=== PATIENT | female | born 1940 | race Caucasian/White ===

== ENCOUNTER → 2016-12-12 | Outpatient (CLI) | payer MEDICARE, BC ==
[2016-12-12 11:53] LABS: ABSOLUTE BASOPHILS # (AUTO) 0.1 10^3/uL (0.0-0.2); ABSOLUTE EOSINOPHILS # (AUTO) 0.3 10^3/uL (0.0-0.6); ABSOLUTE LYMPHOCYTES (AUTO) 1.9 10^3/uL (0.5-4.7); ABSOLUTE MONOCYTES (AUTO) 0.8 10^3/uL (0.1-1.4); ABSOLUTE NEUT (AUTO) 5.7 10^3/uL (1.7-8.2); BASOPHILS % (AUTO) 1.1 % (0-2); EOSINOPHILS % (AUTO) 3.3 % (0-6); HEMATOCRIT 34.1 % (36.0-47.0); HEMOGLOBIN 11.2 g/dL (12.0-15.5); HGB HCT DIFFERENCE -0.5; LYMPHOCYTES % (AUTO) 22.1 % (13-45); MEAN CORPUSCULAR HEMOGLOBIN 29.4 pg (27.0-33.4); MEAN CORPUSCULAR HGB CONC 32.7 g/dL (32.0-36.0); MEAN CORPUSCULAR VOLUME 90 fl (80-97); MONOCYTES % (AUTO) 8.7 % (3-13); RED BLOOD COUNT 3.79 10^6/uL (3.72-5.28); RED CELL DISTRIBUTION WIDTH 13.7 % (11.5-14.0); SEGMENTED NEUTROPHILS % (AUTO) 64.8 % (42-78); WHITE BLOOD COUNT 8.8 10^3/uL (4.0-10.5)
[2016-12-12 12:10] LABS: APPEARANCE,URINE SLIGHTLY-CLOUDY; BILIRUBIN,URINE NEGATIVE (NEGATIVE); GLUCOSE, URINE NEGATIVE (NEGATIVE); KETONES,URINE NEGATIVE (NEGATIVE); LEUKOCYTE ESTERASE,URINE MODERATE (NEGATIVE); NITRITE,URINE NEGATIVE (NEGATIVE); PROTEIN,URINE NEGATIVE (NEGATIVE); URINE SPECIFIC GRAVITY 1.009; UROBILINOGEN,URINE NEGATIVE mg/dL (<2.0)
[2016-12-12 12:18] LABS: ALANINE AMINOTRANSFERASE 23 U/L (9-52); ALBUMIN 4.5 g/dL (3.5-5.0); ALKALINE PHOSPHATASE 33 U/L (38-126); ANION GAP 15 (5-19); ASPARTATE AMINO TRANSFERASE 16 U/L (14-36); BILIRUBIN,DIRECT 0.3 mg/dL (0.0-0.4); BILIRUBIN,TOTAL 0.4 mg/dL (0.2-1.3); BLOOD UREA NITROGEN 56 mg/dL (7-20); CALCIUM 9.7 mg/dL (8.4-10.2); CARBON DIOXIDE 25 mmol/L (22-30); CHLORIDE 100 mmol/L (98-107); CREATININE RESULT 2.56 mg/dL (0.52-1.25); GLUCOSE 96 mg/dL (75-110); MAGNESIUM 2.3 mg/dL (1.6-2.3); PHOSPHORUS 5.1 mg/dL (2.5-4.5); POTASSIUM 4.9 mmol/L (3.6-5.0); SODIUM 139.5 mmol/L (137-145); TOTAL PROTEIN 7.2 g/dL (6.3-8.2)
== END ==
LOC: OD 10:44
PROVIDERS: ATTEND Internal Medicine Nephrology
DX: I12.9 Hypertensive chronic kidney disease with stage 1 through stage 4 chronic kidney disease, or unspecified chronic kidney disease (principal); N18.4 Chronic kidney disease, stage 4 (severe)
CPT/HCPCS: 36415; 80053; 81001; 83735; 84100; 85025

== ENCOUNTER → 2017-02-23 | Outpatient (CLI) | payer MEDICARE, BC ==
[2017-02-23 11:51] LABS: HEMATOCRIT 33.9 % (36.0-47.0); HEMOGLOBIN 11.2 g/dL (12.0-15.5); HGB HCT DIFFERENCE -0.3; MEAN CORPUSCULAR HEMOGLOBIN 29.8 pg (27.0-33.4); MEAN CORPUSCULAR VOLUME 90 fl (80-97); RED BLOOD COUNT 3.76 10^6/uL (3.72-5.28); RED CELL DISTRIBUTION WIDTH 13.8 % (11.5-14.0); WHITE BLOOD COUNT 8.2 10^3/uL (4.0-10.5)
[2017-02-23 12:25] LABS: ALANINE AMINOTRANSFERASE 18 U/L (9-52); ALBUMIN 4.6 g/dL (3.5-5.0); ALKALINE PHOSPHATASE 36 U/L (38-126); ANION GAP 14 (5-19); ASPARTATE AMINO TRANSFERASE 16 U/L (14-36); BILIRUBIN,DIRECT 0.3 mg/dL (0.0-0.4); BILIRUBIN,TOTAL 0.5 mg/dL (0.2-1.3); BLOOD UREA NITROGEN 42 mg/dL (7-20); CALCIUM 9.5 mg/dL (8.4-10.2); CARBON DIOXIDE 25 mmol/L (22-30); CHLORIDE 103 mmol/L (98-107); CREATININE RESULT 2.53 mg/dL (0.52-1.25); GLUCOSE 79 mg/dL (75-110); POTASSIUM 4.6 mmol/L (3.6-5.0); SODIUM 141.5 mmol/L (137-145); TOTAL PROTEIN 7.5 g/dL (6.3-8.2)
[2017-02-23 15:04] LABS: APPEARANCE,URINE SLIGHTLY-CLOUDY; BILIRUBIN,URINE NEGATIVE (NEGATIVE); GLUCOSE, URINE NEGATIVE (NEGATIVE); KETONES,URINE NEGATIVE (NEGATIVE); LEUKOCYTE ESTERASE,URINE TRACE (NEGATIVE); NITRITE,URINE NEGATIVE (NEGATIVE); PROTEIN,URINE NEGATIVE (NEGATIVE); URINE SPECIFIC GRAVITY 1.011; UROBILINOGEN,URINE NEGATIVE mg/dL (<2.0)
[2017-02-25 11:40] LABS: CREATININE URINE 84.8 mg/dL (Not Estab.); MICROALBUMIN URINE 22.2 ug/mL (Not Estab.)
== END ==
LOC: OD 10:52
PROVIDERS: ATTEND Physician Assistant Medical
DX: I12.9 Hypertensive chronic kidney disease with stage 1 through stage 4 chronic kidney disease, or unspecified chronic kidney disease (principal); N18.4 Chronic kidney disease, stage 4 (severe); R60.9 Edema, unspecified
CPT/HCPCS: 36415; 80053; 81001; 82043; 82570; 85027

== ENCOUNTER → 2017-03-27 | Outpatient (CLI) | payer MEDICARE, BC ==
[2017-03-27 12:20] LABS: HEMATOCRIT 33.4 % (36.0-47.0); HGB HCT DIFFERENCE -0.4; MEAN CORPUSCULAR HEMOGLOBIN 30.1 pg (27.0-33.4); MEAN CORPUSCULAR VOLUME 91 fl (80-97); RED BLOOD COUNT 3.66 10^6/uL (3.72-5.28); RED CELL DISTRIBUTION WIDTH 13.1 % (11.5-14.0); WHITE BLOOD COUNT 7.7 10^3/uL (4.0-10.5)
[2017-03-27 12:21] LABS: APPEARANCE,URINE CLEAR; BILIRUBIN,URINE NEGATIVE (NEGATIVE); GLUCOSE, URINE NEGATIVE (NEGATIVE); KETONES,URINE NEGATIVE (NEGATIVE); LEUKOCYTE ESTERASE,URINE NEGATIVE (NEGATIVE); NITRITE,URINE NEGATIVE (NEGATIVE); PROTEIN,URINE NEGATIVE (NEGATIVE); URINE SPECIFIC GRAVITY 1.009; UROBILINOGEN,URINE NEGATIVE mg/dL (<2.0)
[2017-03-27 12:59] LABS: ANION GAP 13 (5-19); BLOOD UREA NITROGEN 49 mg/dL (7-20); CALCIUM 9.9 mg/dL (8.4-10.2); CARBON DIOXIDE 24 mmol/L (22-30); CHLORIDE 103 mmol/L (98-107); CREATININE RESULT 2.25 mg/dL (0.52-1.25); GLUCOSE 81 mg/dL (75-110); SODIUM 139.5 mmol/L (137-145)
== END ==
LOC: OD 11:29
PROVIDERS: ATTEND Physician Assistant Medical
DX: I12.9 Hypertensive chronic kidney disease with stage 1 through stage 4 chronic kidney disease, or unspecified chronic kidney disease (principal); N18.4 Chronic kidney disease, stage 4 (severe); R60.9 Edema, unspecified
CPT/HCPCS: 36415; 80048; 81001; 85027

== ENCOUNTER → 2017-10-01 | Outpatient (CLI) | payer MEDICARE, BC ==
[2017-10-01 13:03] LABS: HEMATOCRIT 35.4 % (36.0-47.0); HEMOGLOBIN 11.9 g/dL (12.0-15.5); MEAN CORPUSCULAR HEMOGLOBIN 29.8 pg (27.0-33.4); MEAN CORPUSCULAR HGB CONC 33.7 g/dL (32.0-36.0); MEAN CORPUSCULAR VOLUME 88 fl (80-97); PLATELET COUNT 337 10^3/uL (150-450); RED CELL DISTRIBUTION WIDTH 13.5 % (11.5-14.0); WHITE BLOOD COUNT 8.7 10^3/uL (4.0-10.5)
[2017-10-01 13:05] LABS: APPEARANCE,URINE SLIGHTLY-CLOUDY; BILIRUBIN,URINE NEGATIVE (NEGATIVE); COLOR,URINE YELLOW; GLUCOSE, URINE NEGATIVE (NEGATIVE); KETONES,URINE NEGATIVE (NEGATIVE); LEUKOCYTE ESTERASE,URINE SMALL (NEGATIVE); NITRITE,URINE NEGATIVE (NEGATIVE); PROTEIN,URINE NEGATIVE (NEGATIVE); URINE SPECIFIC GRAVITY 1.012; UROBILINOGEN,URINE NEGATIVE mg/dL (<2.0)
[2017-10-01 13:32] LABS: ANION GAP 14 (5-19); BLOOD UREA NITROGEN 40 mg/dL (7-20); CALCIUM 9.4 mg/dL (8.4-10.2); CARBON DIOXIDE 24 mmol/L (22-30); CHLORIDE 103 mmol/L (98-107); GLUCOSE 78 mg/dL (75-110); POTASSIUM 5.1 mmol/L (3.6-5.0); SODIUM 140.6 mmol/L (137-145)
== END ==
LOC: OD 11:51
PROVIDERS: ATTEND Physician Assistant Medical
DX: I12.9 Hypertensive chronic kidney disease with stage 1 through stage 4 chronic kidney disease, or unspecified chronic kidney disease (principal); N18.4 Chronic kidney disease, stage 4 (severe); D64.9 Anemia, unspecified
CPT/HCPCS: 36415; 80048; 81001; 85027

== ENCOUNTER → 2018-02-08 | Outpatient (CLI) | payer MEDICARE, BC ==
[2018-02-08 12:52] LABS: HEMATOCRIT 35.7 % (36.0-47.0); HEMOGLOBIN 11.7 g/dL (12.0-15.5); MEAN CORPUSCULAR HGB CONC 32.7 g/dL (32.0-36.0); MEAN CORPUSCULAR VOLUME 89 fl (80-97); PLATELET COUNT 327 10^3/uL (150-450); RED BLOOD COUNT 4.03 10^6/uL (3.72-5.28); RED CELL DISTRIBUTION WIDTH 13.6 % (11.5-14.0); WHITE BLOOD COUNT 7.9 10^3/uL (4.0-10.5)
[2018-02-08 13:03] LABS: APPEARANCE,URINE CLEAR; BILIRUBIN,URINE NEGATIVE (NEGATIVE); COLOR,URINE STRAW; GLUCOSE, URINE NEGATIVE (NEGATIVE); KETONES,URINE NEGATIVE (NEGATIVE); LEUKOCYTE ESTERASE,URINE TRACE (NEGATIVE); NITRITE,URINE NEGATIVE (NEGATIVE); PROTEIN,URINE NEGATIVE (NEGATIVE); UROBILINOGEN,URINE NEGATIVE mg/dL (<2.0)
[2018-02-08 13:23] LABS: ANION GAP 14 (5-19); BLOOD UREA NITROGEN 33 mg/dL (7-20); CALCIUM 9.6 mg/dL (8.4-10.2); CARBON DIOXIDE 25 mmol/L (22-30); CHLORIDE 108 mmol/L (98-107); GLUCOSE 84 mg/dL (75-110); PHOSPHORUS 4.5 mg/dL (2.5-4.5); POTASSIUM 5.2 mmol/L (3.6-5.0); SODIUM 146.8 mmol/L (137-145)
== END ==
LOC: OD 12:09
PROVIDERS: ATTEND Physician Assistant Medical
DX: I12.9 Hypertensive chronic kidney disease with stage 1 through stage 4 chronic kidney disease, or unspecified chronic kidney disease (principal); N18.4 Chronic kidney disease, stage 4 (severe); R60.9 Edema, unspecified; E87.5 Hyperkalemia; D64.9 Anemia, unspecified
CPT/HCPCS: 36415; 80048; 81001; 83970; 84100; 85027

== ENCOUNTER → 2018-03-26 | Outpatient (CLI) | payer MEDICARE, BC ==
[2018-03-26 11:55] LABS: ANION GAP 17 (5-19); BLOOD UREA NITROGEN 53 mg/dL (7-20); CALCIUM 9.8 mg/dL (8.4-10.2); CARBON DIOXIDE 20 mmol/L (22-30); CHLORIDE 107 mmol/L (98-107); GLUCOSE 75 mg/dL (75-110); POTASSIUM 5.1 mmol/L (3.6-5.0); SODIUM 144.3 mmol/L (137-145)
== END ==
LOC: OD 09:59
PROVIDERS: ATTEND Physician Assistant Medical
DX: N18.4 Chronic kidney disease, stage 4 (severe) (principal); E87.5 Hyperkalemia; M19.91 Primary osteoarthritis, unspecified site
CPT/HCPCS: 36415; 80048

== ENCOUNTER → 2018-05-27 | Outpatient (CLI) | payer MEDICARE, BC ==
[2018-05-27 13:34] LABS: ANION GAP 13 (5-19); BLOOD UREA NITROGEN 45 mg/dL (7-20); CALCIUM 9.9 mg/dL (8.4-10.2); CARBON DIOXIDE 24 mmol/L (22-30); CHLORIDE 104 mmol/L (98-107); GLUCOSE 97 mg/dL (75-110); PHOSPHORUS 4.2 mg/dL (2.5-4.5); SODIUM 140.5 mmol/L (137-145)
[2018-05-27 13:38] LABS: POTASSIUM 5.3 mmol/L (3.6-5.0)
[2018-05-27 13:40] LABS: APPEARANCE,URINE TURBID; BILIRUBIN,URINE NEGATIVE (NEGATIVE); COLOR,URINE YELLOW; GLUCOSE, URINE NEGATIVE (NEGATIVE); KETONES,URINE NEGATIVE (NEGATIVE); LEUKOCYTE ESTERASE,URINE LARGE (NEGATIVE); NITRITE,URINE POSITIVE (NEGATIVE); PROTEIN,URINE 100 mg/dL (NEGATIVE); URINE SPECIFIC GRAVITY 1.013; UROBILINOGEN,URINE NEGATIVE mg/dL (<2.0)
[2018-05-31 13:32] LABS: HEMATOCRIT 36.9 % (36.0-47.0); HEMOGLOBIN 12.3 g/dL (12.0-15.5); MEAN CORPUSCULAR HEMOGLOBIN 29.7 pg (27.0-33.4); MEAN CORPUSCULAR HGB CONC 33.5 g/dL (32.0-36.0); MEAN CORPUSCULAR VOLUME 89 fl (80-97); PLATELET COUNT 390 10^3/uL (150-450); RED BLOOD COUNT 4.16 10^6/uL (3.72-5.28); RED CELL DISTRIBUTION WIDTH 13.9 % (11.5-14.0); WHITE BLOOD COUNT 10.9 10^3/uL (4.0-10.5)
== END ==
LOC: OD 12:34
PROVIDERS: ATTEND Physician Assistant Medical
DX: I12.9 Hypertensive chronic kidney disease with stage 1 through stage 4 chronic kidney disease, or unspecified chronic kidney disease (principal); N18.4 Chronic kidney disease, stage 4 (severe); R30.0 Dysuria
CPT/HCPCS: 36415; 80048; 81001; 83970; 84100; 85025; 85027; 87086; 87088; 87186

== ENCOUNTER → 2018-10-01 | Outpatient (CLI) | payer MEDICARE, BC ==
[2018-10-01 11:41] LABS: HEMATOCRIT 37.1 % (36.0-47.0); HEMOGLOBIN 12.4 g/dL (12.0-15.5); MEAN CORPUSCULAR HEMOGLOBIN 29.5 pg (27.0-33.4); MEAN CORPUSCULAR HGB CONC 33.4 g/dL (32.0-36.0); MEAN CORPUSCULAR VOLUME 88 fl (80-97); PLATELET COUNT 304 10^3/uL (150-450); RED CELL DISTRIBUTION WIDTH 14.2 % (11.5-14.0); WHITE BLOOD COUNT 8.3 10^3/uL (4.0-10.5)
[2018-10-01 11:43] LABS: APPEARANCE,URINE TURBID; BILIRUBIN,URINE NEGATIVE (NEGATIVE); COLOR,URINE YELLOW; GLUCOSE, URINE NEGATIVE (NEGATIVE); KETONES,URINE NEGATIVE (NEGATIVE); LEUKOCYTE ESTERASE,URINE LARGE (NEGATIVE); NITRITE,URINE POSITIVE (NEGATIVE); PROTEIN,URINE 30 mg/dL (NEGATIVE); URINE SPECIFIC GRAVITY 1.013; UROBILINOGEN,URINE NEGATIVE mg/dL (<2.0)
[2018-10-01 12:08] LABS: ANION GAP 12 (5-19); BLOOD UREA NITROGEN 45 mg/dL (7-20); CALCIUM 9.7 mg/dL (8.4-10.2); CARBON DIOXIDE 23 mmol/L (22-30); CHLORIDE 107 mmol/L (98-107); GLUCOSE 79 mg/dL (75-110); POTASSIUM 4.9 mmol/L (3.6-5.0); SODIUM 142.3 mmol/L (137-145)
== END ==
LOC: OD 10:20
PROVIDERS: ATTEND Physician Assistant Medical
DX: I12.9 Hypertensive chronic kidney disease with stage 1 through stage 4 chronic kidney disease, or unspecified chronic kidney disease (principal); N18.4 Chronic kidney disease, stage 4 (severe); R60.9 Edema, unspecified; D64.9 Anemia, unspecified
CPT/HCPCS: 36415; 80048; 81001; 83735; 85027

== ENCOUNTER → 2019-02-11 | Outpatient (CLI) | payer MEDICARE, BC ==
[2019-02-11 11:54] LABS: HEMOGLOBIN 12.2 g/dL (12.0-15.5); MEAN CORPUSCULAR HEMOGLOBIN 29.1 pg (27.0-33.4); MEAN CORPUSCULAR HGB CONC 33.1 g/dL (32.0-36.0); MEAN CORPUSCULAR VOLUME 88 fl (80-97); PLATELET COUNT 319 10^3/uL (150-450); RED BLOOD COUNT 4.21 10^6/uL (3.72-5.28); RED CELL DISTRIBUTION WIDTH 14.1 % (11.5-14.0); WHITE BLOOD COUNT 8.2 10^3/uL (4.0-10.5)
[2019-02-11 11:58] LABS: APPEARANCE,URINE CLOUDY; BILIRUBIN,URINE NEGATIVE (NEGATIVE); COLOR,URINE YELLOW; GLUCOSE, URINE NEGATIVE (NEGATIVE); KETONES,URINE NEGATIVE (NEGATIVE); LEUKOCYTE ESTERASE,URINE LARGE (NEGATIVE); NITRITE,URINE NEGATIVE (NEGATIVE); PROTEIN,URINE NEGATIVE (NEGATIVE); URINE SPECIFIC GRAVITY 1.013; UROBILINOGEN,URINE NEGATIVE mg/dL (<2.0)
[2019-02-11 12:21] LABS: ANION GAP 10 (5-19); BLOOD UREA NITROGEN 35 mg/dL (7-20); CALCIUM 9.5 mg/dL (8.4-10.2); CARBON DIOXIDE 26 mmol/L (22-30); CHLORIDE 107 mmol/L (98-107); GLUCOSE 100 mg/dL (75-110); POTASSIUM 5.1 mmol/L (3.6-5.0); SODIUM 142.5 mmol/L (137-145)
== END ==
LOC: OD 11:16
PROVIDERS: ATTEND Physician Assistant Medical
DX: I12.9 Hypertensive chronic kidney disease with stage 1 through stage 4 chronic kidney disease, or unspecified chronic kidney disease (principal); N18.9 Chronic kidney disease, unspecified; R60.9 Edema, unspecified; E87.5 Hyperkalemia; D64.9 Anemia, unspecified
CPT/HCPCS: 36415; 80048; 81001; 83970; 85027

== ENCOUNTER 2019-02-16 17:00 | Inpatient (IN) | payer MEDICARE, BC ==
[2019-02-16] MEDS ORDERED: NORMAL SALINE 250 ML IV ONE (17:20)
[2019-02-16] MEDS ORDERED: ONDANSETRON HCL INJ/PF 4 MG/2 ML SDV IV ONE ×2 (17:21→20:18)
--- NOTE | 2019-02-16 17:25 | ER Document Report ---
ED Medical Screen (RME) - General Chief Complaint: Nausea/Vomiting Stated Complaint: DEHYDRATION Time Seen by Provider: 02/16/19 17:14 Primary Care Provider: LASHAE WATT PA-C [Primary Care Provider] - Follow up as needed Mode of Arrival: Wheelchair Information source: Patient Notes: Patient is an 78-year-old female with stage IV chronic kidney disease sent to the emergency department with complaints of body cramping and vomiting that began on Thursday. Patient reports she is dehydrated and cannot keep any fluids down. At the time of arrival she is normotensive but tachycardic. She is alert, oriented and answering all questions appropriately with no acute distress noted. She denies any diarrhea or fever. Exam: Abdomen soft, nontender with no guarding and no rebound. I have greeted and performed a rapid initial assessment of this patient. A comprehensive ED assessment and evaluation of the patient, analysis of test results and completion of the medical decision making process will be conducted by additional ED providers. I have specifically instructed the patient or family members with the patient to immediately return to any nursing staff should anything change in the patient's condition or with their chief complaint. This medical record was dictated with voice recognizing software. There may be grammatical, syntax errors that are unintended. TRAVEL OUTSIDE OF THE [place] IN LAST 30 DAYS: No - Related Data Allergies/Adverse Reactions: latex Allergy (Verified 02/16/19 17:07) Physical Exam - Vital signs Vitals: Temp Pulse Resp BP Pulse Ox 98.0 F 125 H 22 H 147/82 H 94 02/16/19 17:14 02/16/19 17:14 02/16/19 17:14 02/16/19 17:14 02/16/19 17:14 Course - Vital Signs Vital signs: Temp Pulse Resp BP Pulse Ox 98.0 F 125 H 22 H 147/82 H 94 02/16/19 17:14 02/16/19 17:14 02/16/19 17:14 02/16/19 17:14 02/16/19 17:14 Doctor's Discharge - Discharge Referrals: LASHAE WATT PA-C [Primary Care Provider] - Follow up as needed
[2019-02-16 17:49] LABS: ABSOLUTE BASOPHILS # (AUTO) 0.1 10^3/uL (0.0-0.2); ABSOLUTE EOSINOPHILS # (AUTO) 0.1 10^3/uL (0.0-0.6); ABSOLUTE LYMPHOCYTES (AUTO) 1.8 10^3/uL (0.5-4.7); ABSOLUTE MONOCYTES (AUTO) 1.4 10^3/uL (0.1-1.4); ABSOLUTE NEUT (AUTO) 7.3 10^3/uL (1.7-8.2); BASOPHILS % (AUTO) 0.6 % (0-2); EOSINOPHILS % (AUTO) 0.5 % (0-6); HEMATOCRIT 43.1 % (36.0-47.0); HEMOGLOBIN 14.6 g/dL (12.0-15.5); LYMPHOCYTES % (AUTO) 17.3 % (13-45); MEAN CORPUSCULAR HEMOGLOBIN 29.8 pg (27.0-33.4); MEAN CORPUSCULAR VOLUME 88 fl (80-97); MONOCYTES % (AUTO) 13.5 % (3-13); PLATELET COUNT 385 10^3/uL (150-450); RED BLOOD COUNT 4.92 10^6/uL (3.72-5.28); RED CELL DISTRIBUTION WIDTH 13.5 % (11.5-14.0); SEGMENTED NEUTROPHILS % (AUTO) 68.1 % (42-78); TOTAL CELLS COUNTED % (AUTO) 100 %; WHITE BLOOD COUNT 10.7 10^3/uL (4.0-10.5)
[2019-02-16 18:06] LABS: ALANINE AMINOTRANSFERASE 12 U/L (9-52); ALBUMIN 5.3 g/dL (3.5-5.0); ALKALINE PHOSPHATASE 62 U/L (38-126); ANION GAP 18 (5-19); ASPARTATE AMINO TRANSFERASE 28 U/L (14-36); BILIRUBIN,DIRECT 0.4 mg/dL (0.0-0.4); BILIRUBIN,TOTAL 0.9 mg/dL (0.2-1.3); BLOOD UREA NITROGEN 61 mg/dL (7-20); CALCIUM 10.7 mg/dL (8.4-10.2); CARBON DIOXIDE 31 mmol/L (22-30); CHLORIDE 86 mmol/L (98-107); GLUCOSE 164 mg/dL (75-110); POTASSIUM 4.1 mmol/L (3.6-5.0); SODIUM 134.6 mmol/L (137-145); TOTAL PROTEIN 9.7 g/dL (6.3-8.2)
[2019-02-16] MEDS ORDERED: NORMAL SALINE 1000 ML 1,000 ML IV ONE ×2 (19:08→19:57)
--- NOTE | 2019-02-16 19:57 | ER Document Report ---
Entered by ANTONIO ALMARAZ SCRIBE 02/16/19 1907 Acting as scribe for:ZANE PRADO MD ED General - General Chief Complaint: Nausea/Vomiting Stated Complaint: DEHYDRATION Time Seen by Provider: 02/16/19 17:14 Mode of Arrival: Wheelchair Information source: Patient, [facility] Records Notes: Patient is a 78-year-old female presenting to the emergency department complaini ng of dehydration with associated nausea and vomiting. Patient states that she knows she is dehydrated she has not had much fluids. Patient states that she has been vomiting and had nausea today, she is not nauseous at the moment after she was given Zofran upon arrival. Patient states that she is also been having bad cramping. When asked patient denies ever being on Advair. Patient states that she occasionally takes albuterol. TRAVEL OUTSIDE OF THE [place] IN LAST 30 DAYS: No - Related Data Allergies/Adverse Reactions: latex Allergy (Verified 02/16/19 17:07) Past Medical History - General Information source: Patient - Social History Smoking Status: Former Smoker Cigarette use (# per day): No Chew tobacco use (# tins/day): No Smoking Education Provided: No Frequency of alcohol use: None Drug Abuse: None Lives with: Family Family History: Reviewed & Not Pertinent Patient has suicidal ideation: No Patient has homicidal ideation: No - Past Medical History Cardiac Medical History: Reports: Hx Hypertension Pulmonary Medical History: Reports: Other - Reactive airway disease GI Medical History: Reports: Hx Gastroesophageal Reflux Disease, Other - Stage IV kidney disease Past Surgical History: Reports: Hx Hysterectomy Review of Systems - Review of Systems Constitutional: No symptoms reported EENT: No symptoms reported Cardiovascular: No symptoms reported Respiratory: No symptoms reported Gastrointestinal: See HPI, Nausea, Vomiting Genitourinary: No symptoms reported Female Genitourinary: No symptoms reported Musculoskeletal: No symptoms reported Skin: No symptoms reported Hematologic/Lymphatic: No symptoms reported Neurological/Psychological: No symptoms reported -: Yes All other systems reviewed and negative Physical Exam - Vital signs Vitals: Temp Pulse Resp BP Pulse Ox 98.0 F 125 H 22 H 147/82 H 94 02/16/19 17:14 02/16/19 17:14 02/16/19 17:14 02/16/19 17:14 02/16/19 17:14 - Notes Notes: Physical Exam: General: Alert, mild generalized tremor, dry mouth. HEENT: Normocephalic. Atraumatic. PERRL. Extraocular movements intact. Oropharynx clear. Neck: Supple. Non-tender. Respiratory: No respiratory distress. Clear and equal breath sounds bilaterally. Cardiovascular: Tachycardic. Regular rhythm. Abdominal: Normal Inspection. Non-tender. No distension. Normal Bowel Sounds. Back: Non-tender. No deformity or step off. Extremities: Moves all four extremities. Upper extremities: Normal inspection. Normal ROM. Lower extremities: Normal inspection. No edema. Normal ROM. Neurological: Normal cognition. AAOx4. Normal speech. Psychological: Normal affect. Normal Mood. Skin: Warm. Dry. Normal color. Course - Re-evaluation Re-evalutation: 02/16/19 21:21 Acute abdominal series does not show any dilated loops of bowel or air-fluid levels. She did vomit just before the x-ray, got additional Zofran. She has now again just vomited. Her blood pressure remains elevated. We will give her a dose of Lopressor and Reglan IV. We will continue IV hydration. - Vital Signs Vital signs: Temp Pulse Resp BP Pulse Ox 97.8 F 104 H 18 160/73 H 92 02/17/19 01:00 02/17/19 01:00 02/17/19 01:00 02/17/19 01:00 02/17/19 01:00 - Laboratory Result Diagrams: 02/16/19 17:30 02/16/19 17:30 Laboratory results interpreted by me: 02/16/19 02/16/19 02/16/19 17:30 17:30 21:04 WBC 10.7 H Monocytes % 13.5 H Sodium 134.6 L Chloride 86 L Carbon Dioxide 31 H BUN 61 H Creatinine 3.61 H Est GFR ( Amer) 15 L Est GFR (Non-Af Amer) 12 L Glucose 164 H Calcium 10.7 H Total Protein 9.7 H Albumin 5.3 H Urine Protein >=500 H Urine Ketones TRACE H Urine Blood MODERATE H Ur Leukocyte Esterase MODERATE H - Diagnostic Test Radiology reviewed: Image reviewed, Reports reviewed - Acute abdominal series does not show any acute pathology. - EKG Interpretation by Me EKG shows normal: Sinus rhythm, [place], Intervals, QRS Complexes. abnormal: ST-T Waves - Diffuse borderline ST depression Rate: Tachycardia - 127 Rhythm: Other - Runs of premature complexes, unable to determine if these are aberrant PACs or PVCs Voltage: Decreased voltage When compared to previous EKG there are: Previous EKG unavailable Critical Care Note - Critical Care Note Total time excluding time spent on procedures (mins): 40 Discharge - Discharge Clinical Impression: Dehydration, Tachycardia Nausea and vomiting Qualifiers: Vomiting type: unspecified Vomiting Intractability: non-intractable Qualified Code(s): R11.2 - Nausea with vomiting, unspecified Acute on chronic renal failure Qualifiers: Acute renal failure type: unspecified Chronic kidney disease stage: stage 4 (severe) Qualified Code(s): N17.9 - Acute kidney failure, unspecified High blood pressure Qualifiers: Hypertension type: essential hypertension Qualified Code(s): I10 - Essential (primary) hypertension Condition: Good Disposition: ADMITTED INPATIENT Admitting Provider: Ban (Hospitalist) Unit Admitted: Telemetry Scribe Attestation: 02/16/19 23:12 I personally performed the services described in the documentation, reviewed and edited the documentation which was dictated to the scribe in my presence, and it accurately records my words and actions. I personally performed the services described in the documentation, reviewed and edited the documentation which was dictated to the scribe in my presence, and it accurately records my words and actions.
[2019-02-16] MEDS ORDERED: AMLODIPINE BESYLATE 10 MG TABLET PO ONE (19:58)
[2019-02-16] MEDS ORDERED: ONDANSETRON HCL INJ/PF 4 MG/2 ML SDV ONE (20:19)
[2019-02-16] MEDS ORDERED: PROMETHAZINE HCL INJ 25 MG/1 ML VIAL ONE (20:21)
--- NOTE | 2019-02-16 20:53 | RADIOLOGY REPORT (SQ) ---
EXAM DESCRIPTION: XR ABDOMEN SUPINE AND ERECT WITH CHEST (ABD ACUTE SERIES) COMPLETED DATE/TME: 02/16/2019 19:58 CLINICAL HISTORY: 78 years Female ,Nausea and vomiting COMPARISON: None. TECHNIQUE: Frontal view chest x-ray and two views of the abdomen. FINDINGS: The cardiomediastinal silhouette appears unremarkable. No consolidating infiltrates or pleural effusions. Atelectasis in the lung bases. Patient is rotated to the right. No free air is identified beneath the hemidiaphragms. No dilated loops of bowel to suggest obstruction. Degenerative changes in the spine. IMPRESSION: No acute plain film abnormality is identified.
[2019-02-16] MEDS ORDERED: METOPROLOL TARTRATE PF/INJ 5 MG/5 ML SDV IV ONE (21:19)
[2019-02-16] MEDS ORDERED: METOCLOPRAMIDE HCL INJ/PF 10 MG/2 ML SDV IV ONE (21:20)
[2019-02-16 21:28] LABS: APPEARANCE,URINE CLOUDY; BILIRUBIN,URINE NEGATIVE (NEGATIVE); COLOR,URINE AMBER; GLUCOSE, URINE NEGATIVE (NEGATIVE); KETONES,URINE TRACE mg/dL (NEGATIVE); LEUKOCYTE ESTERASE,URINE MODERATE (NEGATIVE); NITRITE,URINE NEGATIVE (NEGATIVE); PROTEIN,URINE >=500 mg/dL (NEGATIVE); URINE SPECIFIC GRAVITY 1.016; UROBILINOGEN,URINE NEGATIVE mg/dL (<2.0)
[2019-02-16 21:38] LABS: CREATINE KINASE 98 U/L (30-135)
[2019-02-16] MEDS ORDERED: CEFTRIAXONE 1 GM/D5W RTU 1 GM/50 ML RTUPB IV ONE (21:49)
[2019-02-16 21:51] LABS: CREATINE KINASE MB 1.47 ng/mL (<4.55)
[2019-02-16 21:57] LABS: TROPONIN I 0.084 ng/mL
[2019-02-16 22:33] LABS: CREATINE KINASE MB 1.42 ng/mL (<4.55); TROPONIN I 0.067 ng/mL
--- NOTE | 2019-02-17 00:01 | PDOC H&P ---
History of Present Illness Admission Date/PCP: 02/16/19 23:20 LASHAE WATT PA-C Patient complains of: Intractable nausea and vomiting History of Present Illness: ADRIÁN DENNY is a 78 year old female who presented to the emergency room with a four-day history of nausea and vomiting. Patient admits persistent severe nausea and vomiting for the last 4 days that has been essentially intractable. She further admits he accompanying symptoms of abdominal cramping and aching of the abdominal musculature after episodes of vomiting as well as general anorexia. She describes the emesis as bilious definitely not containing any blood. She denies other associated or accompanying signs or symptoms. She denies prior similar episodes of the same intensity. She has not identified any aggravating or ameliorating factors for her nausea and vomiting. In the emergency room the patient was found to have acute on chronic renal injury and significant pyuria with a urine culture pending. She was subsequently admitted to the hospital for further evaluation and treatment. Past Medical History Cardiac Medical History: Reports: Hypertension Denies: Coronary Artery Disease, Peripheral Vascular Disease Pulmonary Medical History: Reports: Other - Reactive airway disease Denies: Asthma, Chronic Obstructive Pulmonary Disease (COPD) EENT Medical History: Denies: Cataracts, Ears - Hearing aids Neurological Medical History: Denies: Hemorrhagic CVA, Ischemic CVA, Seizures Endocrine Medical History: Denies: Diabetes Mellitus Type 1, Diabetes Mellitus Type 2, Hyperthyroidism, Hypothyroidism Renal/ Medical History: Reports: Chronic Kidney Disease Denies: Nephrolithiasis Malignancy Medical History: Reports: Breast Cancer GI Medical History: Reports: Gastroesophageal Reflux Disease, Other - Stage IV kidney disease Denies: Cirrhosis, Hepatitis Musculoskeltal Medical History: Denies: Arthritis, Gout Skin Medical History: Denies: Eczema, Psoriasis Psychiatric Medical History: Reports: Tobacco Dependency Denies: Alcohol Dependency, Substance Abuse Traumatic Medical History: Reports: None Hematology: Denies: Anemia, Bleeding Tendencies Infectious Medical History: Reports: None Past Surgical History Past Surgical History: Reports: Hysterectomy, Tonsillectomy, Other - Bilateral breast lumpectomies Social History Information Source: Patient Lives with: Spouse/Significant other Smoking Status: Former Smoker Frequency of Alcohol Use: Social Hx Recreational Drug Use: No Drugs: None Hx Prescription Drug Abuse: No - Advance Directive Resuscitation Status: Do Not Resuscitate Surrogate healthcare decision maker:: Diane Kendrick Family History Family History: CAD, Malignancy Parental Family History Reviewed: Yes Children Family History Reviewed: No Sibling(s) Family History Reviewed.: Yes Medication/Allergy Allergies/Adverse Reactions: latex Allergy (Verified 02/16/19 17:07) Review of Systems Constitutional: PRESENT: as per HPI, anorexia. ABSENT: chills, fever(s) Eyes: ABSENT: visual disturbances, other - Eye pain Ears: ABSENT: hearing changes, other - Ear pain Nose, Mouth, and Throat: ABSENT: mouth pain, sore throat Cardiovascular: ABSENT: chest pain, palpitations Respiratory: ABSENT: cough, dyspnea Gastrointestinal: PRESENT: as per HPI, abdominal pain - Cramping, nausea, vomiting. ABSENT: constipation, diarrhea, hematemesis Genitourinary: ABSENT: dysuria, hematuria Musculoskeletal: ABSENT: back pain, joint swelling, muscle weakness Integumentary: ABSENT: pruritus, rash Neurological: ABSENT: confusion, convulsions, focal weakness, memory loss, syncope - [id number] Psychiatric: ABSENT: anxiety, depression Endocrine: ABSENT: cold intolerance, heat intolerance Hematologic/Lymphatic: ABSENT: easy bleeding, easy bruising Physical Exam Vital Signs: Temp Pulse Resp BP Pulse Ox 98.2 F 125 H 17 170/96 H 94 02/16/19 21:23 02/16/19 17:14 02/16/19 23:30 02/16/19 23:30 02/16/19 23:30 Intake & Output 02/14/19 02/15/19 02/16/19 23:59 23:59 23:59 Intake Total 2300 Balance 2300 Weight 56.8 kg General appearance: PRESENT: no acute distress, cooperative Head exam: PRESENT: atraumatic, normocephalic Eye exam: PRESENT: conjunctiva pink. ABSENT: conjunctival injection, scleral icterus Ear exam: PRESENT: normal external ear exam. ABSENT: bleeding, drainage Mouth exam: PRESENT: dry mucosa, neck supple Neck exam: ABSENT: JVD, thyromegaly, tracheal deviation Respiratory exam: PRESENT: clear to auscultation [place]il[place], symmetrical, unlabored Cardiovascular exam: PRESENT: RRR, tachycardia. ABSENT: clicks, gallop, rubs Pulses: PRESENT: normal radial pulses, normal dorsalis pedis pul Vascular exam: PRESENT: normal capillary refill. ABSENT: pallor GI/Abdominal exam: PRESENT: normal bowel sounds, soft Rectal exam: PRESENT: deferred Extremities exam: ABSENT: joint swelling, pedal edema Musculoskeletal exam: PRESENT: full ROM, normal inspection. ABSENT: tenderness Neurological exam: PRESENT: alert, oriented to person, oriented to place, oriented to time, oriented to situation, CN II-XII grossly intact. ABSENT: motor sensory deficit Psychiatric exam: PRESENT: appropriate affect, normal mood Skin exam: PRESENT: dry, intact - [id number], warm. ABSENT: jaundice, rash, urticaria Results Laboratory Results: 02/16/19 17:30 02/16/19 17:30 02/16/19 02/16/19 02/16/19 17:30 17:30 21:04 WBC 10.7 H RBC 4.92 Hgb 14.6 Hct 43.1 MCV 88 MCH 29.8 MCHC 34.0 RDW 13.5 Plt Count 385 Seg Neutrophils % 68.1 Lymphocytes % 17.3 Monocytes % 13.5 H Eosinophils % 0.5 Basophils % 0.6 Absolute Neutrophils 7.3 Absolute Lymphocytes 1.8 Absolute Monocytes 1.4 Absolute Eosinophils 0.1 Absolute Basophils 0.1 Sodium 134.6 L Potassium 4.1 Chloride 86 L Carbon Dioxide 31 H Anion Gap 18 BUN 61 H Creatinine 3.61 H Est GFR ( Amer) 15 L Est GFR (Non-Af Amer) 12 L Glucose 164 H Calcium 10.7 H Magnesium 1.7 Total Bilirubin 0.9 AST 28 ALT 12 Alkaline Phosphatase 62 Total Protein 9.7 H Albumin 5.3 H Urine Color CANDY Urine Appearance CLOUDY Urine pH 5.0 Ur Specific [place] 1.016 Urine Protein >=500 H Urine Glucose (UA) NEGATIVE Urine Ketones TRACE H Urine Blood MODERATE H Urine Nitrite NEGATIVE Ur Leukocyte Esterase MODERATE H Urine WBC (Auto) >182 Urine RBC (Auto) 6 02/16/19 02/16/19 02/16/19 17:30 17:30 21:50 Creatine Kinase 98 82 CK-MB (CK-2) 1.47 Troponin I 0.084 02/16/19 21:50 Creatine Kinase CK-MB (CK-2) 1.42 Troponin I 0.067 Impressions: Acute Abdomen Series 02/16/19 19:58 IMPRESSION: No acute plain film abnormality is identified. Assessment and Plan - Diagnosis (1) Nausea and vomiting Qualifiers: Vomiting type: unspecified Vomiting Intractability: non-intractable Qualified Code(s): R11.2 - Nausea with vomiting, unspecified Is this a current diagnosis for this admission?: Yes Plan: Nausea and vomiting will be treated with IV fluids and supportive as well as symptomatic cares. She received Zofran 4 mg IV every 4 hours as needed nausea or vomiting and she will be observed closely with frequent vital signs throughout her hospital stay. A daily CBC and metabolic profile with magnesium level will be monitored to evaluate her disease process as well as her therapeutic treatment. Patient received morphine 2 to 4 mg IV every 2 hours on a as needed basis per sliding scale for pain. (2) Acute on chronic renal failure Qualifiers: Acute renal failure type: unspecified Chronic kidney disease stage: stage 4 (severe) Qualified Code(s): N17.9 - Acute kidney failure, unspecified; N18.4 - Chronic kidney disease, stage 4 (severe) Is this a current diagnosis for this admission?: Yes Plan: Patient will be treated with IV fluids and her renal functions to be monitored closely throughout her hospital stay. A consultation with Dr. Pelaez her newscast producer may be obtained if the patient is not showing significant improvement with rehydration. (3) Pyuria Is this a current diagnosis for this admission?: Yes Plan: A urine culture is currently pending and the patient has been started on Rocephin 1 g IV every 24 hours. This will be continued pending culture results. An asymptomatic urinary tract infection may be the underlying cause of the patient's entire disease process. (4) High blood pressure Qualifiers: Hypertension type: essential hypertension Qualified Code(s): I10 - Essential (primary) hypertension Is this a current diagnosis for this admission?: Yes Plan: Patient has been unable to take her antihypertensive medications for the last 4 days. She will be treated with IV hydralazine and IV metoprolol for control of her hypertension and tachycardia until she is able to take her oral medications. Patient will be monitored on telemetry floor throughout her hospital course. - Time Time Spent with patient: 25-34 minutes Medications reviewed and adjusted accordingly: Yes Anticipated discharge: Home - Inpatient Certification Based on my medical assessment, after consideration of the patient's comorbidities, presenting symptoms, or acuity I expect that the services needed warrant INPATIENT care.: Yes I certify that my determination is in accordance with my understanding of Medicare's requirements for reasonable and necessary INPATIENT services [42 CFR 412.3e].: Yes Medical Necessity: Need Close Monitoring Due to Risk of Patient Decompensation, Need For IV Fluids, Need For Continuous Telemetry Monitoring, Need for IV Antibiotics, Risk of Complication if Not Cared For in Hospital
--- NOTE | 2019-02-17 00:04 | EKG REPORT ---
SEVERITY:- ABNORMAL ECG - SINUS TACHYCARDIA RUN OF ATRIALPREMATURE COMPLEXES LOW VOLTAGE IN FRONTAL LEADS BORDERLINE ST DEPRESSION, DIFFUSE LEADS : Confirmed by: Yasmin Greene MD 17-Feb-2019 00:02:08
--- NOTE | 2019-02-17 00:04 | ADVANCED CARE ---
- Diagnosis (1) Nausea and vomiting Diagnosis Current: Yes (2) Acute on chronic renal failure Diagnosis Current: Yes (3) Pyuria Diagnosis Current: Yes (4) High blood pressure Diagnosis Current: Yes Attendance: The patient, her friend Marily Rodriguez and myself. Resuscitation Status: Do Not Resuscitate Discussion: Patient has a advanced directive and will try to get a copy provided by her electric power superintendent to the hospital. She wishes to be DO NOT RESUSCITATE status. She has named her daughter Diane Kendrick as her designated surrogate medical decision- maker. Care Planning Goals: 1. Patient wishes to be DNR status. 2. Diane Kendrick is the patient's designated surrogate medical decision-maker. 3. The patient has an advanced directive and will try to get a copy provided to the hospital for permanent records. Document(s) Completed: Patient has an advanced directive that has been completed reflecting her DNR wishes. Time Spent: 10 minutes
[2019-02-17] MEDS ORDERED: MAGNESIUM HYDROXIDE SUSP 30 ML UDCUP PO PRN (02:06)
[2019-02-17] MEDS ORDERED: TEMAZEPAM 7.5 MG CAPSULE PO PRN (02:06)
[2019-02-17] MEDS ORDERED: MAG HYDROX/AL HYDROX/SIMETH SUSP 30 ML UDCUP PO PRN (02:06)
[2019-02-17] MEDS ORDERED: ACETAMINOPHEN 325 MG TABLET PO PRN ×2 (02:12→09:50)
[2019-02-17] MEDS ORDERED: HYDRALAZINE HCL INJ/PF 20 MG/1 ML SDV IV PRN (02:12)
[2019-02-17] MEDS ORDERED: INSULIN REG, HUMAN 100 UNIT/ML 3 ML VIAL (PYX) SUBCUT PRN (02:13)
[2019-02-17] MEDS ORDERED: DEXTROSE 50%-WATER 25 GM/50 ML DISP.SYRIN IV PRN ×2 (02:14)
[2019-02-17] MEDS ORDERED: DEXTROSE 40% GEL 15 GM TUBE PO PRN ×2 (02:14)
[2019-02-17] MEDS ORDERED: GLUCAGON,HUMAN RECOMB 1 MG INJ IM PRN (02:14)
[2019-02-17] MEDS ORDERED: METOCLOPRAMIDE HCL INJ/PF 10 MG/2 ML SDV ONE (02:28)
[2019-02-17] MEDS: RINGERS SOLUTION,LACTATED 1,000 ML IV PRN ×2 (02:37→10:53)
[2019-02-17] MEDS: METOCLOPRAMIDE HCL INJ/PF 10 MG/2 ML SDV IV PRN ×3 (02:37→20:16)
[2019-02-17] MEDS: METOPROLOL TARTRATE PF/INJ 5 MG/5 ML SDV IV SCH ×5 (02:43→17:28)
[2019-02-17] MEDS: MORPHINE SULFATE 10 MG/ML INJ IV PRN ×2 (03:04→05:41)
[2019-02-17] MEDS: HEPARIN SOD (PORCINE) 5,000 UNIT/ML 1 ML SYRINGE SUBCUT SCH ×3 (05:41→22:05)
[2019-02-17] MEDS ORDERED: PROMETHAZINE HCL INJ 25 MG/1 ML VIAL IV ONE (09:50)
[2019-02-17] MEDS ORDERED: MORPHINE SULFATE 10 MG/ML INJ IV PRN ×3 (09:56→09:57)
[2019-02-17] MEDS: PANTOPRAZOLE SODIUM 40 MG VIAL IV SCH ×2 (10:53→22:00)
[2019-02-17] MEDS: DOCUSATE SODIUM 100 MG CAPSULE PO SCH ×2 (11:02→17:23)
--- NOTE | 2019-02-17 13:29 | PDOC PROGRESS REPORT ---
Subjective Progress Note for:: 02/17/19 Subjective:: This is 78 years old female patient whose past medical history of hypertension and CKD presented with 4-day history of nausea and vomiting. Her vomiting is bilious material. Patient has associated loss of appetite. Her urine analysis also positive for leukocyte esterase and pyuria. It has been on ceftriaxone for the UTI and supportive measures for her nausea and vomiting. Reason For Visit: NAUSEA AND VOMITING,DEHYDRATION,ACUTE KIDNEY Physical Exam Vital Signs: Temp Pulse Resp BP Pulse Ox 98.3 F 87 17 169/89 H 96 02/17/19 08:22 02/17/19 08:22 02/17/19 08:22 02/17/19 08:22 02/17/19 08:22 Intake & Output 02/16/19 02/17/19 02/18/19 06:59 06:59 06:59 Intake Total 2410 1000 Balance 2410 1000 Weight 59 kg General appearance: PRESENT: no acute distress Eye exam: PRESENT: conjunctiva pink Mouth exam: PRESENT: moist Neck exam: ABSENT: carotid bruit, JVD, lymphadenopathy, thyromegaly Respiratory exam: PRESENT: clear to auscultation akilah. ABSENT: rales, rhonchi, wheezes Cardiovascular exam: PRESENT: RRR. ABSENT: diastolic murmur, rubs, systolic murmur GI/Abdominal exam: PRESENT: normal bowel sounds, soft. ABSENT: distended, guarding, mass, organolmegaly, rebound, tenderness Neurological exam: PRESENT: alert, awake Results Laboratory Results: 02/16/19 17:30 02/16/19 17:30 02/16/19 02/16/19 02/16/19 17:30 17:30 21:04 WBC 10.7 H RBC 4.92 Hgb 14.6 Hct 43.1 MCV 88 MCH 29.8 MCHC 34.0 RDW 13.5 Plt Count 385 Seg Neutrophils % 68.1 Lymphocytes % 17.3 Monocytes % 13.5 H Eosinophils % 0.5 Basophils % 0.6 Absolute Neutrophils 7.3 Absolute Lymphocytes 1.8 Absolute Monocytes 1.4 Absolute Eosinophils 0.1 Absolute Basophils 0.1 Sodium 134.6 L Potassium 4.1 Chloride 86 L Carbon Dioxide 31 H Anion Gap 18 BUN 61 H Creatinine 3.61 H Est GFR ( Amer) 15 L Est GFR (Non-Af Amer) 12 L Glucose 164 H Calcium 10.7 H Magnesium 1.7 Total Bilirubin 0.9 AST 28 ALT 12 Alkaline Phosphatase 62 Total Protein 9.7 H Albumin 5.3 H Urine Color CANDY Urine Appearance CLOUDY Urine pH 5.0 Ur Specific [place] 1.016 Urine Protein >=500 H Urine Glucose (UA) NEGATIVE Urine Ketones TRACE H Urine Blood MODERATE H Urine Nitrite NEGATIVE Ur Leukocyte Esterase MODERATE H Urine WBC (Auto) >182 Urine RBC (Auto) 6 02/16/19 02/16/19 02/16/19 17:30 17:30 21:50 Creatine Kinase 98 82 CK-MB (CK-2) 1.47 Troponin I 0.084 02/16/19 21:50 Creatine Kinase CK-MB (CK-2) 1.42 Troponin I 0.067 Impressions: Acute Abdomen Series 02/16/19 19:58 IMPRESSION: No acute plain film abnormality is identified. Assessment and Plan - Diagnosis (1) Intractable nausea and vomiting Qualifiers: Vomiting type: unspecified Qualified Code(s): R11.2 - Nausea with vomiting, unspecified Is this a current diagnosis for this admission?: Yes Plan: Patient has been on antiemetics and she is also been gently hydrated. (2) HILARIO on stage IV CKD Is this a current diagnosis for this admission?: Yes Plan: Her baseline creatinine is less than 3 but during this admission her creatinine jumped to 3.61. We will gently hydrate her. We will avoid nephrotoxic agents. Patient needs outpatient follow-up with fuel dock attendant. (3) UTI (urinary tract infection) Is this a current diagnosis for this admission?: Yes Plan: Continue ceftriaxone (4) Hypertension Qualifiers: Hypertension type: essential hypertension Qualified Code(s): I10 - Essential (primary) hypertension Is this a current diagnosis for this admission?: Yes Plan: Continue home meds
[2019-02-17] MEDS: SIMETHICONE 80 MG TAB.CHEW PO PRN (17:28)
[2019-02-17] MEDS ORDERED: CEFTRIAXONE 1 GM/D5W RTU 1 GM/50 ML RTUPB IV SCH (22:00)
[2019-02-17] MEDS ORDERED: METOPROLOL SUCCINATE 50 MG TAB.SR.24H PO SCH (22:00)
[2019-02-17] MEDS: CEFTRIAXONE SODIUM 1,000 MG in DEXTROSE 5%-WATER 50 ML IV SCH (22:02)
[2019-02-17] MEDS ORDERED: DILTIAZEM HCL INJ 25 MG/5 ML VIAL IV ONE (23:30)
[2019-02-18] MEDS: RINGERS SOLUTION,LACTATED 1,000 ML IV PRN ×2 (01:00→21:51)
[2019-02-18 05:32] LABS: HEMATOCRIT 38.8 % (36.0-47.0); HEMOGLOBIN 12.9 g/dL (12.0-15.5); MEAN CORPUSCULAR HEMOGLOBIN 29.3 pg (27.0-33.4); MEAN CORPUSCULAR HGB CONC 33.3 g/dL (32.0-36.0); MEAN CORPUSCULAR VOLUME 88 fl (80-97); PLATELET COUNT 297 10^3/uL (150-450); RED BLOOD COUNT 4.41 10^6/uL (3.72-5.28); RED CELL DISTRIBUTION WIDTH 13.5 % (11.5-14.0); WHITE BLOOD COUNT 6.1 10^3/uL (4.0-10.5)
[2019-02-18 05:52] LABS: ANION GAP 11 (5-19); BLOOD UREA NITROGEN 56 mg/dL (7-20); CALCIUM 8.2 mg/dL (8.4-10.2); CARBON DIOXIDE 27 mmol/L (22-30); CHLORIDE 96 mmol/L (98-107); CHOLESTEROL 143.38 mg/dL (0-200); GLUCOSE 118 mg/dL (75-110); POTASSIUM 4.1 mmol/L (3.6-5.0); SODIUM 133.7 mmol/L (137-145); TRIGLYCERIDES 99 mg/dL (<150)
[2019-02-18 06:03] LABS: DIRECT LDL 65 mg/dL (<100)
[2019-02-18] MEDS: SIMETHICONE 80 MG TAB.CHEW PO PRN (06:06)
[2019-02-18 06:08] LABS: FREE T3 2.25 pg/mL (2.77-5.27); FREE T4 (FREE THYROXINE) 1.6 ng/dL (0.78-2.19)
[2019-02-18] MEDS: HEPARIN SOD (PORCINE) 5,000 UNIT/ML 1 ML SYRINGE SUBCUT SCH ×3 (06:08→21:50)
[2019-02-18 06:22] LABS: THYROID STIMULATING HORMONE 1.35 uIU/mL (0.47-4.68)
[2019-02-18] MEDS: PANTOPRAZOLE SODIUM 40 MG VIAL IV SCH ×2 (10:27→21:51)
[2019-02-18] MEDS: DOCUSATE SODIUM 100 MG CAPSULE PO SCH ×2 (10:28→18:16)
--- NOTE | 2019-02-18 14:53 | PDOC PROGRESS REPORT ---
Subjective Progress Note for:: 02/18/19 Subjective:: This is 78 years old female patient whose past medical history of hypertension and CKD presented with 4-day history of nausea and vomiting. Her vomiting is bilious material. Patient has associated loss of appetite. Her urine analysis also positive for leukocyte esterase and pyuria. It has been on ceftriaxone for the UTI and supportive measures for her nausea and vomiting. 02/18/2019: Patient reports that her vomiting is relatively subsided. Yesterday night patient has an episode of tachycardia which is treated with metoprolol. Her kidney function is improving evidence advised that her creatinine was 3.6 on admission now it is 2.71. Reason For Visit: NAUSEA AND VOMITING,DEHYDRATION,ACUTE KIDNEY Physical Exam Vital Signs: Temp Pulse Resp BP Pulse Ox 97.7 F 91 24 H 149/82 H 94 02/18/19 11:28 02/18/19 11:28 02/18/19 11:28 02/18/19 11:28 02/18/19 11:28 Intake & Output 02/17/19 02/18/19 02/19/19 06:59 06:59 06:59 Intake Total 2410 3016 120 Balance 2410 3016 120 Weight 59 kg 59.3 kg General appearance: PRESENT: no acute distress Eye exam: PRESENT: conjunctiva pink Neck exam: ABSENT: carotid bruit, JVD, lymphadenopathy, thyromegaly Respiratory exam: PRESENT: clear to auscultation akilah. ABSENT: rales, rhonchi, wheezes Cardiovascular exam: PRESENT: RRR. ABSENT: diastolic murmur, rubs, systolic murmur Neurological exam: PRESENT: awake, oriented to person, oriented to place, oriented to time, oriented to situation Results Laboratory Results: 02/18/19 05:17 02/18/19 05:17 02/18/19 02/18/19 02/18/19 05:17 05:17 05:17 WBC 6.1 RBC 4.41 Hgb 12.9 Hct 38.8 MCV 88 MCH 29.3 MCHC 33.3 RDW 13.5 Plt Count 297 Sodium 133.7 L Potassium 4.1 Chloride 96 L Carbon Dioxide 27 Anion Gap 11 BUN 56 H Creatinine 2.71 H Est GFR ( Amer) 20 L Est GFR (Non-Af Amer) 17 L Glucose 118 H Calcium 8.2 L Magnesium 1.4 L Triglycerides 99 Cholesterol 143.38 LDL Cholesterol Direct 65 VLDL Cholesterol 20.0 HDL Cholesterol 52 TSH 1.35 Free T4 1.60 Free T3 pg/mL 2.25 L 02/16/19 21:04 Catheterized Urine Urine Culture - Final Escherichia Coli 02/16/19 02/16/19 02/16/19 17:30 17:30 21:50 Creatine Kinase 98 82 CK-MB (CK-2) 1.47 Troponin I 0.084 02/16/19 21:50 Creatine Kinase CK-MB (CK-2) 1.42 Troponin I 0.067 Impressions: Acute Abdomen Series 02/16/19 19:58 IMPRESSION: No acute plain film abnormality is identified. Assessment and Plan - Diagnosis (1) Intractable nausea and vomiting Qualifiers: Vomiting type: unspecified Qualified Code(s): R11.2 - Nausea with vomiting, unspecified Is this a current diagnosis for this admission?: Yes Plan: Patient has been on antiemetics and she is also been gently hydrated. (2) HILARIO on stage IV CKD Is this a current diagnosis for this admission?: Yes Plan: Her baseline creatinine is less than 3 but during this admission her creatinine jumped to 3.61. We will gently hydrate her. We will avoid nephrotoxic agents. 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 (3) UTI (urinary tract infection) Is this a current diagnosis for this admission?: Yes Plan: Continue ceftriaxone (4) Hypertension Qualifiers: Hypertension type: essential hypertension Qualified Code(s): I10 - Essential (primary) hypertension Is this a current diagnosis for this admission?: Yes
[2019-02-18] MEDS ORDERED: PROMETHAZINE HCL INJ 25 MG/1 ML VIAL IV PRN (14:57)
[2019-02-18] MEDS: CEFTRIAXONE SODIUM 1,000 MG in DEXTROSE 5%-WATER 50 ML IV SCH (21:50)
[2019-02-18] MEDS: METOPROLOL TARTRATE 50 MG TABLET PO SCH (21:51)
[2019-02-19 05:12] LABS: HEMATOCRIT 39.1 % (36.0-47.0); HEMOGLOBIN 12.9 g/dL (12.0-15.5); MEAN CORPUSCULAR HEMOGLOBIN 29.4 pg (27.0-33.4); MEAN CORPUSCULAR HGB CONC 33.1 g/dL (32.0-36.0); MEAN CORPUSCULAR VOLUME 89 fl (80-97); PLATELET COUNT 286 10^3/uL (150-450); RED BLOOD COUNT 4.41 10^6/uL (3.72-5.28); RED CELL DISTRIBUTION WIDTH 13.6 % (11.5-14.0); WHITE BLOOD COUNT 10.1 10^3/uL (4.0-10.5)
[2019-02-19] MEDS: HEPARIN SOD (PORCINE) 5,000 UNIT/ML 1 ML SYRINGE SUBCUT SCH ×3 (05:24→22:08)
[2019-02-19 05:36] LABS: ANION GAP 13 (5-19); BLOOD UREA NITROGEN 61 mg/dL (7-20); CALCIUM 8.4 mg/dL (8.4-10.2); CARBON DIOXIDE 29 mmol/L (22-30); CHLORIDE 94 mmol/L (98-107); GLUCOSE 89 mg/dL (75-110); POTASSIUM 4.3 mmol/L (3.6-5.0); SODIUM 136.3 mmol/L (137-145)
[2019-02-19] MEDS ORDERED: METOCLOPRAMIDE HCL INJ/PF 10 MG/2 ML SDV IV PRN (09:30)
[2019-02-19] MEDS: DOCUSATE SODIUM 100 MG CAPSULE PO SCH ×2 (09:42→18:53)
[2019-02-19] MEDS: MAGNESIUM SULFATE/D5W 1 GM/100 ML RTUPB IV SCH ×3 (09:42→12:20)
[2019-02-19] MEDS: PANTOPRAZOLE SODIUM 40 MG VIAL IV SCH ×2 (09:42→22:09)
[2019-02-19] MEDS: METOPROLOL TARTRATE 50 MG TABLET PO SCH ×2 (09:42→22:07)
--- NOTE | 2019-02-19 14:13 | PDOC PROGRESS REPORT ---
Subjective Progress Note for:: 02/19/19 Subjective:: This is 78 years old female patient whose past medical history of hypertension and CKD presented with 4-day history of nausea and vomiting. Her vomiting is bilious material. Patient has associated loss of appetite. Her urine analysis also positive for leukocyte esterase and pyuria. It has been on ceftriaxone for the UTI and supportive measures for her nausea and vomiting. 02/18/2019: Patient reports that her vomiting is relatively subsided. Yesterday night patient has an episode of tachycardia which is treated with metoprolol. Her kidney function is improving evidence advised that her creatinine was 3.6 on admission now it is 2.71. 02/19/2019: Patient seen resting in bed comfortably. She reports this the frequency of her vomiting is decreasing and she tolerates clear liquid diet. Her labs shows hypomagnesemia. Her diet advanced to soft diet. Reason For Visit: NAUSEA AND VOMITING,DEHYDRATION,ACUTE KIDNEY Physical Exam Vital Signs: Temp Pulse Resp BP Pulse Ox 98.1 F 93 16 160/72 H 96 02/19/19 03:32 02/19/19 07:00 02/19/19 03:32 02/19/19 03:32 02/19/19 03:32 Intake & Output 02/18/19 02/19/19 02/20/19 06:59 06:59 06:59 Intake Total 3016 1980 250 Balance 3016 1980 250 Weight 59.3 kg 58.7 kg General appearance: PRESENT: no acute distress Eye exam: PRESENT: conjunctiva pink Respiratory exam: PRESENT: clear to auscultation akilah. ABSENT: rales, rhonchi, wheezes Cardiovascular exam: PRESENT: RRR. ABSENT: diastolic murmur, rubs, systolic murmur Neurological exam: PRESENT: alert, awake, oriented to person, oriented to place, oriented to time, oriented to situation Results Laboratory Results: 02/19/19 05:04 02/19/19 05:04 02/19/19 02/19/19 05:04 05:04 WBC 10.1 RBC 4.41 Hgb 12.9 Hct 39.1 MCV 89 MCH 29.4 MCHC 33.1 RDW 13.6 Plt Count 286 Sodium 136.3 L Potassium 4.3 Chloride 94 L Carbon Dioxide 29 Anion Gap 13 BUN 61 H Creatinine 2.59 H Est GFR ( Amer) 22 L Est GFR (Non-Af Amer) 18 L Glucose 89 Calcium 8.4 Magnesium 1.4 L 02/16/19 02/16/19 02/16/19 17:30 17:30 21:50 Creatine Kinase 98 82 CK-MB (CK-2) 1.47 Troponin I 0.084 02/16/19 21:50 Creatine Kinase CK-MB (CK-2) 1.42 Troponin I 0.067 Impressions: Acute Abdomen Series 02/16/19 19:58 IMPRESSION: No acute plain film abnormality is identified. Assessment and Plan - Diagnosis (1) Hypomagnesemia Is this a current diagnosis for this admission?: Yes Plan: We will replace her magnesium and check her magnesium level in a.m. (2) Intractable nausea and vomiting Qualifiers: Vomiting type: unspecified Qualified Code(s): R11.2 - Nausea with vomiting, unspecified Is this a current diagnosis for this admission?: Yes Plan: Patient has been on antiemetics and she is also been gently hydrated. 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 We will gently hydrate her. We will avoid nephrotoxic agents. 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 (4) UTI (urinary tract infection) Is this a current diagnosis for this admission?: Yes Plan: Continue ceftriaxone (5) Hypertension Qualifiers: Hypertension type: essential hypertension Qualified Code(s): I10 - Essential (primary) hypertension Is this a current diagnosis for this admission?: Yes Plan: Continue home meds
[2019-02-19] MEDS: RINGERS SOLUTION,LACTATED 1,000 ML IV PRN (15:55)
[2019-02-19] MEDS: CEFTRIAXONE SODIUM 1,000 MG in DEXTROSE 5%-WATER 50 ML IV SCH (22:10)
[2019-02-20] MEDS: RINGERS SOLUTION,LACTATED 1,000 ML IV PRN ×2 (00:44→08:38)
[2019-02-20 03:16] VITALS: BP 130/62
[2019-02-20] MEDS: HEPARIN SOD (PORCINE) 5,000 UNIT/ML 1 ML SYRINGE SUBCUT SCH (05:18)
[2019-02-20 05:33] LABS: HEMATOCRIT 35.7 % (36.0-47.0); HEMOGLOBIN 11.8 g/dL (12.0-15.5); MEAN CORPUSCULAR HEMOGLOBIN 29.1 pg (27.0-33.4); MEAN CORPUSCULAR VOLUME 88 fl (80-97); PLATELET COUNT 263 10^3/uL (150-450); RED BLOOD COUNT 4.04 10^6/uL (3.72-5.28); RED CELL DISTRIBUTION WIDTH 13.3 % (11.5-14.0); WHITE BLOOD COUNT 6.7 10^3/uL (4.0-10.5)
[2019-02-20 05:52] LABS: ANION GAP 12 (5-19); BLOOD UREA NITROGEN 44 mg/dL (7-20); CALCIUM 8.4 mg/dL (8.4-10.2); CARBON DIOXIDE 25 mmol/L (22-30); CHLORIDE 98 mmol/L (98-107); GLUCOSE 97 mg/dL (75-110); POTASSIUM 3.6 mmol/L (3.6-5.0); SODIUM 134.9 mmol/L (137-145)
[2019-02-20] MEDS: DOCUSATE SODIUM 100 MG CAPSULE PO SCH (09:10)
[2019-02-20] MEDS: METOPROLOL TARTRATE 50 MG TABLET PO SCH (09:20)
--- NOTE | 2019-02-20 10:52 | PDOC DISCHARGE SUMMARY ---
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 Patient admits persistent severe nausea and vomiting for the last 4 days that has been essentially intractable. She further admits he accompanying symptoms of abdominal cramping and aching of the abdominal musculature after episodes of vomiting as well as general anorexi a. She describes the emesis as bilious definitely not containing any blood. She denies other associated or accompanying signs or symptoms. She denies prior similar episodes of the same intensity. She has not identified any aggravating or ameliorating factors for her nausea and vomiting. In the emergency room the patient was found to have acute on chronic renal injury and significant pyuria with a urine culture pending. She was subsequently admitted to the hospital for further evaluation and treatment. Hospital Course Hospital Course: This is 78 years old female patient whose past medical history of hypertension and CKD presented with 4-day history of nausea and vomiting. Her vomiting is bilious material. Patient has associated loss of appetite. Her urine analysis also positive for leukocyte esterase and pyuria. It has been on ceftriaxone for the UTI and supportive measures for her nausea and vomiting. 02/18/2019: Patient reports that her vomiting is relatively subsided. Yesterday night patient has an episode of tachycardia which is treated with metoprolol. Her kidney function is improving evidence advised that her creatinine was 3.6 on admission now it is 2.71. 02/19/2019: Patient seen resting in bed comfortably. She reports this the frequency of her vomiting is decreasing and she tolerates clear liquid diet. Her labs shows hypomagnesemia. Her diet advanced to soft diet. 02/20/2019: Patient seen and examined while she is resting her recliner. She complains of 2 loose stool after she was given 3 tablets of Colace. Her kidney function markedly improved at admission her creatinine was 3.61 today it is 1.78 and her hypomagnesemia has been corrected. Her vital signs are within normal limits and patient stable enough to go home. I will continue her home medication and I will send her with Zofran. Patient advised to have follow-up with her primary care physician. Physical Exam Vital Signs: Temp Pulse Resp BP Pulse Ox 97.8 F 87 16 130/62 H 94 02/20/19 03:20 02/20/19 07:00 02/20/19 03:20 02/20/19 03:20 02/20/19 03:20 Intake & Output 02/19/19 02/20/19 02/21/19 06:59 06:59 06:59 Intake Total 2980 2380 988 Output Total 500 Balance 2980 1880 988 Weight 58.7 kg 58.7 kg General appearance: PRESENT: no acute distress Head exam: PRESENT: atraumatic Eye exam: PRESENT: conjunctiva pink Mouth exam: PRESENT: moist Neck exam: ABSENT: carotid bruit, JVD, lymphadenopathy, thyromegaly Respiratory exam: PRESENT: clear to auscultation akilah. ABSENT: rales, rhonchi, wheezes Cardiovascular exam: PRESENT: RRR. ABSENT: diastolic murmur, rubs, systolic murmur GI/Abdominal exam: PRESENT: normal bowel sounds, soft. ABSENT: distended, guarding, mass, organolmegaly, rebound, tenderness Neurological exam: PRESENT: alert, awake, oriented to person, oriented to place, oriented to time, oriented to situation Results Laboratory Results: 02/20/19 05:00 02/20/19 05:00 02/20/19 02/20/19 05:00 05:00 WBC 6.7 RBC 4.04 Hgb 11.8 L Hct 35.7 L MCV 88 MCH 29.1 MCHC 33.0 RDW 13.3 Plt Count 263 Sodium 134.9 L Potassium 3.6 Chloride 98 Carbon Dioxide 25 Anion Gap 12 BUN 44 H Creatinine 1.78 H Est GFR ( Amer) 33 L Est GFR (Non-Af Amer) 27 L Glucose 97 Calcium 8.4 Magnesium 2.3 07/10/19 07/10/19 07/10/19 17:30 17:30 21:50 Creatine Kinase 98 82 CK-MB (CK-2) 1.47 Troponin I 0.084 02/16/19 21:50 Creatine Kinase CK-MB (CK-2) 1.42 Troponin I 0.067 Impressions: Acute Abdomen Series 02/16/19 19:58 IMPRESSION: No acute plain film abnormality is identified. Qualifiers - * PATIENT BEING DISCHARGED WITH ANY OF THE FOLLOWING DIAGNOSIS: No Acute Heart Failure - Is this a Heart Failure Patient?: No LVEF < 40%?: No- if no continue to question #3 3. Anticoagulant therapy for permanect/persistent/paraoxysmal Afib or Aflutter: N/A
[2019-02-20] MEDS ORDERED: METOCLOPRAMIDE HCL INJ/PF 10 MG/2 ML SDV IV ONE (10:53)
== END 2019-02-20 11:54 | disposition home or self-care (01) | DRG 683 ==
LOC: ER 17:00 → EH 23:20 → 4S 02-17 00:50
PROVIDERS: ADMIT Emergency Medicine; ATTEND Emergency Medicine
DX: N17.9 Acute kidney failure, unspecified (principal); N39.0 Urinary tract infection, site not specified; E86.0 Dehydration; N18.4 Chronic kidney disease, stage 4 (severe); Z91.040 Latex allergy status; I10 Essential (primary) hypertension; J45.998 Other asthma; K21.9 Gastro-esophageal reflux disease without esophagitis; I12.9 Hypertensive chronic kidney disease with stage 1 through stage 4 chronic kidney disease, or unspecified chronic kidney disease; F17.200 Nicotine dependence, unspecified, uncomplicated; Z66 Do not resuscitate; E83.42 Hypomagnesemia
CPT/HCPCS: 36415; 74022; 80048; 80053; 80061; 81001; 82550; 82553; 82962; 83036; 83735; 84439; 84443; 84481; 84484; 85025; 85027; 87086; 87088; 87186; 93005; 93010; 96361; 96365; 96375; 96376; 99291; J0360; J0696; J1644; J2270; J2405; J2550; J2765; J3475; J3490; J7030; J7050; J7060; J7120; S0164

== ENCOUNTER → 2019-03-21 | Outpatient (CLI) | payer MEDICARE, BC ==
[2019-03-21 12:03] LABS: ANION GAP 9 (5-19); BLOOD UREA NITROGEN 23 mg/dL (7-20); CALCIUM 9.6 mg/dL (8.4-10.2); CARBON DIOXIDE 31 mmol/L (22-30); CHLORIDE 100 mmol/L (98-107); GLUCOSE 84 mg/dL (75-110); POTASSIUM 5.3 mmol/L (3.6-5.0)
== END ==
LOC: OD 10:48
PROVIDERS: ATTEND Physician Assistant Medical
DX: E83.51 Hypocalcemia (principal); E83.42 Hypomagnesemia
CPT/HCPCS: 36415; 80048; 83735

== ENCOUNTER → 2019-04-20 | Outpatient (CLI) | payer MEDICARE, BC ==
[2019-04-20 12:32] LABS: APPEARANCE,URINE TURBID; BILIRUBIN,URINE NEGATIVE (NEGATIVE); COLOR,URINE YELLOW; GLUCOSE, URINE NEGATIVE (NEGATIVE); KETONES,URINE NEGATIVE (NEGATIVE); LEUKOCYTE ESTERASE,URINE LARGE (NEGATIVE); NITRITE,URINE POSITIVE (NEGATIVE); PROTEIN,URINE 30 mg/dL (NEGATIVE); URINE SPECIFIC GRAVITY 1.013; UROBILINOGEN,URINE NEGATIVE mg/dL (<2.0)
[2019-04-20 12:34] LABS: ABSOLUTE BASOPHILS # (AUTO) 0.1 10^3/uL (0.0-0.2); ABSOLUTE EOSINOPHILS # (AUTO) 0.2 10^3/uL (0.0-0.6); ABSOLUTE LYMPHOCYTES (AUTO) 1.8 10^3/uL (0.5-4.7); ABSOLUTE MONOCYTES (AUTO) 0.8 10^3/uL (0.1-1.4); ABSOLUTE NEUT (AUTO) 5.6 10^3/uL (1.7-8.2); BASOPHILS % (AUTO) 0.9 % (0-2); EOSINOPHILS % (AUTO) 2.1 % (0-6); HEMATOCRIT 34.3 % (36.0-47.0); HEMOGLOBIN 11.4 g/dL (12.0-15.5); LYMPHOCYTES % (AUTO) 21.5 % (13-45); MEAN CORPUSCULAR HEMOGLOBIN 29.4 pg (27.0-33.4); MEAN CORPUSCULAR HGB CONC 33.3 g/dL (32.0-36.0); MEAN CORPUSCULAR VOLUME 88 fl (80-97); PLATELET COUNT 349 10^3/uL (150-450); RED CELL DISTRIBUTION WIDTH 14.6 % (11.5-14.0); SEGMENTED NEUTROPHILS % (AUTO) 66.5 % (42-78); TOTAL CELLS COUNTED % (AUTO) 100 %; WHITE BLOOD COUNT 8.4 10^3/uL (4.0-10.5)
[2019-04-20 12:41] LABS: ANION GAP 11 (5-19); BLOOD UREA NITROGEN 62 mg/dL (7-20); CARBON DIOXIDE 26 mmol/L (22-30); CHLORIDE 102 mmol/L (98-107); GLUCOSE 93 mg/dL (75-110); PHOSPHORUS 4.7 mg/dL (2.5-4.5); POTASSIUM 5.6 mmol/L (3.6-5.0)
== END ==
LOC: OD 11:48
PROVIDERS: ATTEND Physician Assistant Medical
DX: I12.9 Hypertensive chronic kidney disease with stage 1 through stage 4 chronic kidney disease, or unspecified chronic kidney disease (principal); N18.4 Chronic kidney disease, stage 4 (severe); R60.9 Edema, unspecified; E87.5 Hyperkalemia; E83.42 Hypomagnesemia; E83.51 Hypocalcemia
CPT/HCPCS: 36415; 80048; 81001; 83970; 84100; 85025

== ENCOUNTER → 2019-04-25 | Outpatient (CLI) | payer MEDICARE, BC | LOC: OD 12:12 | PROVIDERS: ATTEND Physician Assistant Medical | DX: E87.5 Hyperkalemia (principal) | CPT/HCPCS: 36415; 84132 ==

== ENCOUNTER → 2019-07-22 | Outpatient (CLI) | payer MEDICARE, BC ==
[2019-07-22 12:19] LABS: APPEARANCE,URINE CLEAR; BILIRUBIN,URINE NEGATIVE (NEGATIVE); COLOR,URINE STRAW; GLUCOSE, URINE NEGATIVE (NEGATIVE); KETONES,URINE NEGATIVE (NEGATIVE); LEUKOCYTE ESTERASE,URINE SMALL (NEGATIVE); NITRITE,URINE NEGATIVE (NEGATIVE); PROTEIN,URINE NEGATIVE (NEGATIVE); URINE SPECIFIC GRAVITY 1.011; UROBILINOGEN,URINE NEGATIVE mg/dL (<2.0)
[2019-07-22 12:23] LABS: ABSOLUTE BASOPHILS # (AUTO) 0.1 10^3/uL (0.0-0.2); ABSOLUTE EOSINOPHILS # (AUTO) 0.2 10^3/uL (0.0-0.6); ABSOLUTE LYMPHOCYTES (AUTO) 2.2 10^3/uL (0.5-4.7); ABSOLUTE MONOCYTES (AUTO) 0.6 10^3/uL (0.1-1.4); ABSOLUTE NEUT (AUTO) 5.6 10^3/uL (1.7-8.2); EOSINOPHILS % (AUTO) 2.2 % (0-6); HEMATOCRIT 36.5 % (36.0-47.0); HEMOGLOBIN 12.3 g/dL (12.0-15.5); LYMPHOCYTES % (AUTO) 25.2 % (13-45); MEAN CORPUSCULAR HEMOGLOBIN 30.2 pg (27.0-33.4); MEAN CORPUSCULAR HGB CONC 33.7 g/dL (32.0-36.0); MEAN CORPUSCULAR VOLUME 90 fl (80-97); MONOCYTES % (AUTO) 7.5 % (3-13); PLATELET COUNT 302 10^3/uL (150-450); RED BLOOD COUNT 4.07 10^6/uL (3.72-5.28); SEGMENTED NEUTROPHILS % (AUTO) 64.1 % (42-78); TOTAL CELLS COUNTED % (AUTO) 100 %; WHITE BLOOD COUNT 8.7 10^3/uL (4.0-10.5)
[2019-07-22 12:30] LABS: ANION GAP 14 (5-19); BLOOD UREA NITROGEN 35 mg/dL (7-20); CALCIUM 9.5 mg/dL (8.4-10.2); CARBON DIOXIDE 25 mmol/L (22-30); CHLORIDE 104 mmol/L (98-107); GLUCOSE 87 mg/dL (75-110); PHOSPHORUS 4.4 mg/dL (2.5-4.5); POTASSIUM 4.2 mmol/L (3.6-5.0)
== END ==
LOC: OD 11:39
PROVIDERS: ATTEND Physician Assistant Medical
DX: I12.9 Hypertensive chronic kidney disease with stage 1 through stage 4 chronic kidney disease, or unspecified chronic kidney disease (principal); N18.4 Chronic kidney disease, stage 4 (severe); D63.1 Anemia in chronic kidney disease; E87.5 Hyperkalemia; E83.51 Hypocalcemia; R60.9 Edema, unspecified; N39.0 Urinary tract infection, site not specified
CPT/HCPCS: 36415; 80048; 81001; 83970; 84100; 85025; 87086

== ENCOUNTER → 2020-07-18 | Outpatient (CLI) | payer MEDICARE, BC ==
--- NOTE | 2020-07-18 14:46 | RADIOLOGY REPORT (SQ) ---
EXAM DESCRIPTION: BARIUM SWALLOW ESOPHAGUS IMAGES COMPLETED DATE/TIME: 07/18/2020 9:51 am REASON FOR STUDY: (R13.10)DYSPHAGIA, UNSPECIFIED R13.10 DYSPHAGIA, UNSPECIFIED COMPARISON: Barium swallow 10/15/2012 TECHNIQUE: Under fluoroscopic guidance, patient ingested effervescent granules followed by thick and thin barium. Fluoroscopic spot images and routine radiographic images acquired and stored on PACS. 12 MM BARIUM TABLET GIVEN: Yes. Slow passage through the esophagus LIMITATIONS: None. FLUOROSCOPY TIME: FLUORO TIME: 2.2 minutes of fluoroscopy was used. 14 images saved to PACS. FINDINGS: NEUROMUSCULAR COORDINATION OF SWALLOW: Normal. No aspiration. Moderate cricopharyngeal hy pertrophy with large Zenker's diverticulum measuring approximately 2 x 4 cm. The neck of the Zenker' s measures 11 mm. This has significantly grown in size when compared to the previous study of 10/16/19 13. ESOPHAGEAL MOTILITY: Slow primary peristalsis. No esophageal spasm. The was slow passage of the 12 m m barium tablet through the esophagus requiring multiple drinks of water to clear. ESOPHAGEAL MUCOSA: Normal mucosa without masses or ulceration. GASTRO-ESOPHAGEAL JUNCTION: No hiatal hernia or significant reflux. 12 mm barium tablet passed throu gh the GE junction without delay NON-GI TRACT STRUCTURES: No significant finding. OTHER: No other significant finding. IMPRESSION: 1. LARGE ZENKER'S DIVERTICULUM THAT WERE ON SIGNIFICANTLY SINCE PREVIOUS STUDY IN 13. 2. ESOPHAGEAL DYSMOTILITY WHICH LED TO SLOW PASSAGE OF THE 12 MM BARIUM TABLET THROUGH THE LUMEN OF THE ESOPHAGUS. NO ULCERATIONS OR INFLAMMATORY CHANGE SEEN. COMMENT: Quality ID [id number]: Final reports for procedures using fluoroscopy that document radiation exp osure indices, or exposure time and number of fluorographic images (if radiation exposure indices are not available) TECHNICAL DOCUMENTATION: JOB ID: [id number] 2010 [employer]- All Rights Reserved Reading location - IP/workstation name: [email or web address]
== END ==
LOC: RAD 08:48
PROVIDERS: ATTEND Family Medicine
DX: K22.5 Diverticulum of esophagus, acquired (principal)
CPT/HCPCS: 74220